=== PATIENT | male | born 1985 | race Two or more races ===

== ENCOUNTER 2025-07-06 10:52 | Emergency (ER) | payer OTHER ==
[~2025-07-06] VITALS: Ht 172.7 cm; Wt 68.0 kg
[2025-07-06 13:33] LABS: BASO % 0.4 % (0.1-1.2); EOS # 0.05 (0.04-0.54); EOS % 0.7 % (0.7-7.0); LYMPH # 0.48 (1.18-3.74); LYMPH % 6.4 % (19.3-53.1); MEAN PLATELET VOLUME 9.20 fl (9.4-12.4); MONO # 0.33 (0.24-0.82); MONO % 4.4 % (4.7-12.5); NEUT # 6.58 (1.56-6.13); NEUT % 88.0 % (34.0-71.1); RED CELL DISTRIBUTION WIDTH 13.0 % (11.6-14.4)
[2025-07-06 13:42] LABS: URINE APPEARANCE Clear; URINE BILIRRUBIN Negative (NEGATIVE); URINE BLOOD Negative; URINE COLOR Yellow; URINE GLUCOSE Negative (NEGATIVE); URINE KETONE Negative (NEGATIVE); URINE LEUKOCYTE Negative; URINE NITRATE Negative; URINE PROTEIN Negative (NEGATIVE); URINE UROBILINOGEN 0.2 E.U./dl
[2025-07-06 13:45] LABS: URINE BACTERIA 20.3 uL (0.0-1933); URINE EPITHELIAL CELLS 4.7 uL (0.0-38.8); URINE RBC 4.3 uL (0.0-20.8); URINE WBC 28.7 uL (0.0-23.2)
[2025-07-06 13:52] LABS: INR 0.98
[2025-07-06 13:56] LABS: URINE CAST 0.00 uL (0.0-1.40)
[2025-07-06 14:11] LABS: ALT/SGPT 26.0 U/L (12-78); AST/SGOT 25.0 U/L (15-37); BILIRUBIN TOTAL 0.42 mg/dL (0.3-1.2); BUN CREA RATIO 20.0 (7.0-25.0); CREATININE SERUM 0.75 mg/dL (0.70-1.30); GFR 115.94; GLOBULINA 3.7 G/DL (2.4-3.5); GLUCOSE FASTING 105.0 mg/dL (65-100); OSMOLALITY SERUM 281.0 MOSM/KG (275-295)
[2025-07-06] MEDS ORDERED: CEFTRIAXONE SODIUM 1,000 MG VIAL IM STA ×2 (14:35→15:17)
[2025-07-06] MEDS ORDERED: LIDOCAINE HCL 1% 10ML VIAL ONE (15:37)
[2025-07-06] MEDS ORDERED: CEFTRIAXONE SODIUM 1,000 MG VIAL ONE (15:38)
== END 2025-07-06 17:53 | disposition home or self-care (01) ==
LOC: ER 10:52
PROVIDERS: Physician Assistant Medical
DX: R42 Dizziness and giddiness (principal); Z85.89 Personal history of malignant neoplasm of other organs and systems